=== PATIENT | female | born 2000 | race Hispanic/Latino ===

== ENCOUNTER 2019-10-21 20:30 | Emergency (ER) | payer MEDICAID | END 2019-10-21 21:19 | disposition home or self-care (01) | LOC: EDH 20:30 | DX: O26.892 Other specified pregnancy related conditions, second trimester (principal); Z3A.19 19 weeks gestation of pregnancy; Z98.890 Other specified postprocedural states; Z90.49 Acquired absence of other specified parts of digestive tract | CPT/HCPCS: 99281 ==